=== PATIENT | female | born 1935 | race Caucasian/White ===

== ENCOUNTER → 2017-07-31 | Outpatient (CLI) | payer MEDICARE, BC | LOC: MHCPAIN 10:16 | DX: G89.29 Other chronic pain (principal); M47.817 Spondylosis without myelopathy or radiculopathy, lumbosacral region; M54.16 Radiculopathy, lumbar region; M53.3 Sacrococcygeal disorders, not elsewhere classified; M41.9 Scoliosis, unspecified; M48.061 Spinal stenosis, lumbar region without neurogenic claudication | CPT/HCPCS: G0463 ==

== ENCOUNTER → 2017-09-20 | Outpatient (CLI) | payer MEDICARE, BC | LOC: MHCPAIN 10:22 | DX: M54.16 Radiculopathy, lumbar region (principal) | CPT/HCPCS: J1040; Q9967 ==

== ENCOUNTER → 2017-11-06 | Outpatient (CLI) | payer MEDICARE, BC | LOC: MHCPAIN 13:03 | DX: G89.29 Other chronic pain (principal); M47.817 Spondylosis without myelopathy or radiculopathy, lumbosacral region; M54.16 Radiculopathy, lumbar region; M53.3 Sacrococcygeal disorders, not elsewhere classified; M41.9 Scoliosis, unspecified; M48.061 Spinal stenosis, lumbar region without neurogenic claudication | CPT/HCPCS: G0463 ==

== ENCOUNTER → 2017-11-08 | Outpatient (CLI) | payer MEDICARE, BC | LOC: MHCPAIN 09:57 | DX: M47.817 Spondylosis without myelopathy or radiculopathy, lumbosacral region (principal); M54.16 Radiculopathy, lumbar region | CPT/HCPCS: J1040; Q9967 ==

== ENCOUNTER → 2017-11-21 | Outpatient (CLI) | payer MEDICARE, BC | LOC: MHCPAIN 13:45 | DX: G89.29 Other chronic pain (principal); M47.817 Spondylosis without myelopathy or radiculopathy, lumbosacral region; M54.16 Radiculopathy, lumbar region; M53.3 Sacrococcygeal disorders, not elsewhere classified; M41.9 Scoliosis, unspecified; M48.061 Spinal stenosis, lumbar region without neurogenic claudication | CPT/HCPCS: G0463 ==

== ENCOUNTER → 2018-04-17 | Outpatient (REF) | LOC: ZLAB.WCH 16:33 | DX: Z01.89 Encounter for other specified special examinations (principal) ==

== ENCOUNTER 2019-10-07 12:44 | Inpatient (IN) | payer MEDICARE, BC ==
[~2019-10-07] VITALS: Ht 154.9 cm; Wt 61.7 kg
[2019-11-24] VITALS (9 sets, daily range): BP systolic 106–188; BP diastolic 61–92; PULSE 59–75; TEMP 98–98.3
[2019-11-24] MEDS ORDERED: PRINZIDE 12.5 M1 TA1 PO (08:15)
[2019-11-24] MEDS ORDERED: AMBIEN 10MG10 MG PO (08:16)
[2019-11-24] MEDS ORDERED: ULTRAM 50MG TAB50 MG PO (08:16)
[2019-11-24] MEDS ORDERED: FLONASE NASAL S16 GM NS (08:17)
[2019-11-24] MEDS ORDERED: TOPROL XL 25MG25 MG PO (08:18)
[2019-11-24] MEDS ORDERED: KLONOPIN 0.5MG0.5 MG PO (08:19)
[2019-11-24] MEDS ORDERED: KLOR-CON M1010 MEQ PO (08:20)
[2019-11-24] MEDS ORDERED: TAPAZOLE10 MG PO (08:20)
--- NOTE | 2019-11-24 12:16 | NUR ---
First visit from the respiratory therapy director. Scuba Diving Teacher spoke to the of the patient. No needs right now.
--- NOTE | 2019-11-24 12:40 | NUR ---
PATIENT BACK IN ROOM 329 POST OP. A&O. NOTED ELEVATED B/P IN 169-170'S SYSTOLIC WHICH IS LOWER THAN PRE-OP B/P. ALL OTHER VSS. PATIENT DENIES PAIN AND IS ONLY SL ABLE TO MOVE BLE. RTK DRESSING IS CD&I WITH BULKY ACEWRAP AND ICE PACK INPLACE. TEDS TO LLE. SCD'S TO BLE. POSITIVE PEDAL PULSES TO BLE. NO C/O N/V. IV FLUIDS INFUSING VIA PUMP. LIQUIDS AT BEDSIDE. HEAD TO TOE ASSESSMENT WNL. AT BEDSIDE. CALL LIGHT IN REACH.
--- NOTE | 2019-11-24 14:14 | NUR ---
Excavation Laborer met with patient and patient's , Adria (ph#[phone]) to discuss discharge planning. Patient lives in [place] with her and sees Dr. Lorenzo for primary care. Patient obtains medications from [facility] with no difficulties and has a rollator that she uses at home. Patient reports she is normally independent with ADLS and plans to return home at discharge. Patient states she completed DPOA-HC paperwork with Marco Arango, Retail Customer Service Representative in [place]. MARIANA contacted Marco Arango's office and was advised they would fax over a copy. MARIANA will continue to follow.
--- NOTE | 2019-11-24 18:50 | NUR ---
resting in chair, bedside shift report received from ANNE Neal
--- NOTE | 2019-11-24 20:15 | NUR ---
is ready for bed, full assessment completed, see interventions for further info, medicated with tramadol 100mg for c/os of pain to right knee
--- NOTE | 2019-11-24 21:42 | NUR ---
appears to be sleeping, in bed with lights off, eyes closed, resp quiet and easy
--- NOTE | 2019-11-24 23:28 | NUR ---
states she has been unable to sleep and is just very restless,
--- NOTE | 2019-11-25 00:46 | NUR ---
remains unable to sleep and now states her knee is burning and she is c/o pain, medicated with roxicodone 10mg and repositioned for comfort, will again try to sleep
--- NOTE | 2019-11-25 01:48 | NUR ---
in bed with lights off, no moving about in bed or moaning
--- NOTE | 2019-11-25 02:34 | NUR ---
continues to appear to sleep, eyes closed, resp quiet and easy
[2019-11-25 03:30] VITALS: BP 177/79; PULSE 79; TEMP 97.8
--- NOTE | 2019-11-25 03:40 | NUR ---
awakened for VS, states she has been able to sleep and pain in her knee is much better, encouraged to try and go back to sleep
--- NOTE | 2019-11-25 06:25 | NUR ---
Dr Cullen in to see patient
[2019-11-25 06:43] LABS: HEMOGLOBIN 13.4 g/dl (12.5-16.0)
--- NOTE | 2019-11-25 06:50 | NUR ---
bedside shift report given to ANNE Neal
[2019-11-25 07:15] VITALS: BP 193/66; PULSE 76; TEMP 98.3
--- NOTE | 2019-11-25 08:00 | NUR ---
Patient is alert and oriented. Resting comfortably in bed. Rates pain a 3/10 localized in the rt knee and is controlled with pain regimen. Sloan dressing is clean, dry, and intact. Ice is used for comfort and to reduce swelling. Meliton hose is present on the LLE. IV in right forearm shows no sign of inflammation or redness. No complaints are reported.
--- NOTE | 2019-11-25 10:39 | NUR ---
Sloan and dressing removed. No reddness or drainage present. Edges well approximated. Aquacell dressing and jackie hose applied.
[2019-11-25 10:48] VITALS: BP 174/63; PULSE 72; TEMP 97.8
--- NOTE | 2019-11-25 14:04 | NUR ---
Secondary School Registrar placed copy of DPOA-HC documents on patient's chart.
--- NOTE | 2019-11-25 14:30 | NUR ---
PATIENT RESTING UP IN BED AFTER PM THERAPY. PATIENT AND WANTING TO DISCHARGE HOME. ORTHO PLANNING TO DISCHARGE HOME LATER TONIGHT.
[2019-11-25] MEDS ORDERED: ROXICODONE 55 MG/TAB PO (16:15)
[2019-11-25] MEDS ORDERED: ASPI325T6 PO (16:15)
[2019-11-25] MEDS ORDERED: ULTRAM 50MG TAB50 MG PO (16:15)
[2019-11-25] MEDS ORDERED: SENOKOT S 50 MG1 TAB PO (16:16)
[2019-11-25 16:19] VITALS: BP 169/70; PULSE 76; TEMP 98.1
--- NOTE | 2019-11-25 17:00 | NUR ---
PATIENT DISCHARGING HOME VIA WC TO PERSONAL VEHICLE WITH . GAVE DISCHARGE INSTRUCTIONS, PRESCRIPTIONS SENT ELECTRONICALLY, AND DISCUSSED F/U APT. ANSWERED ALL QUESTIONS/CONCERNS. DC'D RIGHT FORARM IV, COVERED SITE WITH GAUZE & BANDAID. PATIENT DRESSED AND PERSONAL BELONGINGS PACKED. PATIENT ESCORTED OUT.
== END 2019-11-25 17:00 | disposition home or self-care (01) | DRG 470 ==
LOC: JCC 11-24 07:18
PROVIDERS: ADMIT Orthopaedic Surgery
PROC: 0SRC0J9 Replacement of Right Knee Joint with Synthetic Substitute, Cemented, Open Approach (ICD-10-PCS; principal; 2019-11-24 10:30)
DX: M17.11 Unilateral primary osteoarthritis, right knee (principal)
CPT/HCPCS: A9284; C1776; J0690; J2704; J7030; J7120

== ENCOUNTER → 2020-07-14 | Outpatient (CLI) | payer MEDICARE, BC ==
[~2020-07-14] MED LIST: AMBIEN 10MG10 MG PO; ASPI325T6 PO; FLONASE NASAL S16 GM NS; KLONOPIN 0.5MG0.5 MG PO; KLOR-CON M1010 MEQ PO; PRINZIDE 12.5 M1 TA1 PO; ROXICODONE 55 MG/TAB PO; SENOKOT S 50 MG1 TAB PO; TAPAZOLE10 MG PO; TOPROL XL 25MG25 MG PO; ULTRAM 50MG TAB50 MG PO
== END ==
LOC: MHCPAIN 09:59
DX: M47.816 Spondylosis without myelopathy or radiculopathy, lumbar region (principal); M53.3 Sacrococcygeal disorders, not elsewhere classified; M41.86 Other forms of scoliosis, lumbar region; G89.29 Other chronic pain
CPT/HCPCS: G0463

== ENCOUNTER → 2022-04-19 | Outpatient (CLI) | payer MEDICARE, BC | LOC: MHCPAIN 13:54 | DX: M47.896 Other spondylosis, lumbar region (principal); M41.86 Other forms of scoliosis, lumbar region; M48.062 Spinal stenosis, lumbar region with neurogenic claudication | CPT/HCPCS: G0463 ==

== ENCOUNTER → 2022-06-14 | Outpatient (CLI) | payer MEDICARE, BC | LOC: MHCPAIN 10:09 | DX: M48.062 Spinal stenosis, lumbar region with neurogenic claudication (principal); M54.50 Low back pain, unspecified; M47.816 Spondylosis without myelopathy or radiculopathy, lumbar region; Z85.3 Personal history of malignant neoplasm of breast; Z86.39 Personal history of other endocrine, nutritional and metabolic disease | CPT/HCPCS: G0463 ==